=== PATIENT | female | born 1990 | race Caucasian/White ===

== ENCOUNTER → 2016-09-09 | Outpatient (CLI) | payer OTHER ==
[~2016-09-09] MED LIST: PRED10TA PO
[2016-09-09 23:12] LABS: CHOLESTEROL/HDL RATIO 2.7
== END | disposition home or self-care (01) ==
LOC: C.LAB 22:36
PROVIDERS: ATTEND Emergency Medicine
DX: Z00.00 Encounter for general adult medical examination without abnormal findings (principal)

== ENCOUNTER 2021-09-08 11:52 | Inpatient (IN) ==
[2021-09-08] MEDS ORDERED: OXYTOCIN 30 UNITS/500 ML BAG IV PRN ×3 (12:33→22:39)
[2021-09-08] MEDS: LACTATED RINGER'S 1,000 ML IV PRN ×2 (12:45→17:34)
--- NOTE | 2021-09-08 12:46 | History & Physical Report ---
Date of Service September 08, 2021 Assessment & Plan (1) Supervision of normal first : Plan: IUP at 39-3/7 weeks with grossly ruptured membranes and early labor. The actual time of rupture is unclear, and may have occurred sometime yesterday. She is currently afebrile but contractions are still sporadic. We will augment her labor with Pitocin at this time. Epidural when requested We will notify the hospitalist cartridge feeder about the positive panorama screen for Klinefelter's. Anticipate vaginal . History of Present Illness Primary Care Provider: Damien Sales MD Patient is a 30-year-old 1 P0 female EDC of 09/13/2021 who presents at 39-3/7 weeks with leaking amniotic fluid. She had intermittent leaking fluid and vaginal discharge yesterday but it was not till this morning that ruptured membranes was obvious. She had soaked 1 pad through the night for clear fluid and a pad she had put on at 8 AM was soaked by 10 AM this morning. She was evaluated in the office and noted to have pooling nitrazine and ferning positive. She has had irregular contractions since yesterday which have become more consistent but still are very irregular. has been complicated by chlamydia on new OB RNA testing. Follow-up testing has been negative. She also had a positive panorama test for Klinefelter syndrome (XXY). She had a con sultation with genetics at [facility] and elected not to have an amniocentesis for definitive diagnosis but will do cord blood testing after delivery. GBS is negative. Allergies Allergy/AdvReac Type Severity Reaction Status Date / Time No Known Allergies Allergy Verified 09/08/21 11:10 Home Medications Medication Instructions Recorded Confirmed Type prenat.vits,gt,leg-poqz-abjns 1 tab PO DAILY 01/30/21 09/08/21 History sertraline 50 mg tablet (Zoloft) 50 mg PO DAILY 07/03/21 09/08/21 History ondansetron HCl 4 mg tablet 4 mg PO Q6H PRN nausea and 08/23/21 09/08/21 Rx vomiting #30 tabs Patient History Medical History (Updated 08/12/21 @ 14:47 by Antonia Owens DO) Acid reflux Anxiety Varicella vaccination Surgical History S/P wisdom tooth extraction Family History Denies family history of Ovarian cancer Breast cancer Colorectal cancer Social History (Updated 08/12/21 @ 13:17 by Mirtha Cohen RN) Smoking Status: Former smoker Hx Alcohol Use: No Hx Substance Use: No Preferred Language: Serbian Beliefs That Will Affect Care: None marital status: marital status details: Caleb Canada (33) [phone] Current Living Situation: Spouse Current Living Situation Comment: lives with spouse, no pets current occupational status: employed 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 Feels Safe at Home: Yes Review of Systems All systems reviewed & are unremarkable except as noted in HPI & below Physical Exam Constitutional: WD/WN, vitals as above Respiratory: normal respiratory effort, lungs clear to auscultation Cardiovascular: RRR, no murmur, no edema Psychiatric: A+Ox3, euthymic affect Genitourinary: OB Exam Abdomen: + vertex, + estimated weight (7-8 pounds) and + irregular contractions Manual OB Exam: + cervical dilation 2 cm (2-3 cm), + cervical effacement 70%, + station -2 and + amniotic fluid (grossly ruptured) clear OB Exam Monitor Tracing: + external FHT monitor used, + external uterine monitor used, + category I and + normal FHT variability Results & Data ([facility]) Vital Signs (Past 12 Hours) Vital Signs Temp Pulse Resp BP 09/08/21 12:25 69 09/08/21 12:25 122/73 09/08/21 11:59 20 09/08/21 11:59 98.1 F 20 09/08/21 11:58 86 121/74 Code Status & VTE Plan VTE Prophylaxis Plan VTE Prophylaxis will be ordered: No Coding Level of Care Code None Diagnoses Supervision of normal first Z34.00
[2021-09-08 13:16] LABS: Hematocrit (blood only) 35.7 % (34.1-44.9); Hemoglobin 11.9 g/dl (12.0-16.0); Mean Corpuscular Hemoglobin 28.2 pg (25.0-34.0); Mean Corpuscular Hgb Conc 33.3 g/dL (32.0-36.0); Mean Corpuscular Volume 84.6 fL (80.0-100.0); Mean Platelet Volume 9.5 fL (9.4-12.3); Platelet Count 397 K/uL (130-400); RDW Coefficient of Variation 12.8 % (11.5-14.5); RDW Standard Deviation 38.5 fL (36.4-46.3); Red Blood Count 4.22 M/uL (3.93-5.22); White Blood Count 11.46 K/ul (4.8-10.8)
[2021-09-08] MEDS ORDERED: ePHEDrine sulfate 50 MG/ML AMP ONE (16:00)
[2021-09-08] MEDS ORDERED: fentaNYL citrate 100 MCG/2 ML VIAL ONE (16:00)
[2021-09-08] MEDS ORDERED: SODIUM CHLORIDE 0.9% INJ 10 ML VIAL ONE ×2 (16:00→19:07)
[2021-09-08] MEDS ORDERED: fentaNYL 2MCG/ML ROPIVACAINE 1.25MG/ML 100 ML BAG EPI ONE (16:01)
[2021-09-08] MEDS ORDERED: LIDOCAINE 2%/EPINEPHRINE 1:200,000 20 ML SDV ONE (16:01)
[2021-09-08] MEDS ORDERED: BUPIVACAINE 0.25% 30 ML VIAL ONE ×2 (16:01→19:07)
[2021-09-08] MEDS: PANTOprazole 40 MG TAB PO SCH (16:18)
[2021-09-08] MEDS ORDERED: ePHEDrine sulfate 50 MG/ML AMP IV PRN (16:33)
[2021-09-08] MEDS ORDERED: diphenhydrAMINE 50 MG/ML VIAL IV PRN (16:33)
[2021-09-08] MEDS ORDERED: NALOXONE HCL 1 MG in SODIUM CHLORIDE 0.9% 1000ML 1,000 ML IV PRN (16:33)
[2021-09-08] MEDS ORDERED: NALBUPHINE HCL INJ 10 MG/ML AMP IV PRN (16:33)
[2021-09-08] MEDS ORDERED: NALOXONE HCL 0.4 MG/1 ML VIAL/CARP IV PRN (16:33)
[2021-09-08] MEDS ORDERED: ONDANSETRON INJ 2 MG/ML 2 ML VIAL IV PRN (16:33)
[2021-09-08] MEDS ORDERED: fentaNYL 2MCG/ML ROPIVACAINE 1.25MG/ML 100 ML BAG EPI PRN (16:33)
--- NOTE | 2021-09-08 16:36 | Anesthesiology Consultation ---
Date of Service September 08, 2021 Assessment & Plan Chart Review Chart Review: Patient NOT seen in Pre Admission Testing and Acceptable Risk for Labor Epidural Consults Requested none ASA ASA2 Proposed Anesthesia Anesthesia Type: Labor Epidural and CSE Risk / Benefits Reviewed With: PT / POA / Parent / Guardian, Accepts Plan and Informed Consent Obtained History Height/Weight Height: 5 ft 8 in Weight: 89.358 kg Allergies Allergy/AdvReac Type Severity Reaction Status Date / Time No Known Allergies Allergy Verified 09/08/21 11:10 Medications Home Medications Medication Instructions Recorded Confirmed Last Taken prenat.vits,gt,vqd-ogzo-mvdsq 1 tab PO DAILY 01/30/21 09/08/21 09/07/21 sertraline 50 mg tablet (Zoloft) 50 mg PO DAILY 07/03/21 09/08/21 09/07/21 omeprazole 40 mg capsule,delayed 40 mg PO DAILY 09/08/21 09/08/21 09/07/21 release Active Medications Generic Name Dose Route Start Last Admin Trade Name Freq PRN Reason Stop Dose Admin Oxytocin 30 units in 500 mls @ 3 mls/hr 09/08/21 12:33 09/08/21 15:00 Pitocin IV 09/10/21 12:32 0.18 units/hr .Q24H PRN 3 mls/hr Labor Induction/Augmentation Titration Protocol 0.18 UNITS/HR Lactated Ringer's 1,000 mls @ 125 mls/hr 09/08/21 12:33 09/08/21 12:45 Lr IV 09/10/21 12:32 125 mls/hr .Q8H PRN Administration L&D Protocol Protocol Pantoprazole Sodium 40 mg 09/08/21 15:00 09/08/21 16:18 Pantoprazole 40 Mg Tab PO 10/08/21 14:59 40 mg QAM REBEKAH Administration NPO Date Last Intake of Fluids: 09/08/21 Time Last Intake of Fluids: 15:00 Date Last Intake of Solids: 09/07/21 Time Last Intake of Solids: 19:00 Past Medical History Medical History Acid reflux Anxiety Exercise / Class Metabolic Activity II 4-5 Yardwork/Stairs/Walk up hill Past Family History Family History Denies family history of Ovarian cancer Breast cancer Colorectal cancer Past Surgical History Surgical History S/P wisdom tooth extraction Past Anesthesia History No Hx of Anesthesia Complications and No Family Hx of Anesthesia Complications History of PONV No Hx of PONV and No Hx of Motion Sickness Social History Smoking Status: Former smoker Hx Alcohol Use: No Hx Substance Use: No Review of Systems no chest pain or sob Physical Exam Vital Signs Last Vital Signs Temp 36.4 C L 09/08/21 13:33 Pulse 75 09/08/21 16:28 Resp 20 09/08/21 13:33 BP 128/91 09/08/21 16:19 Pulse Ox 100 09/08/21 16:28 ENMT Mouth: no TMJ abnormality Thyromental Distance: > or= 3.5 Finger Breadths Mallampati Class: II Neck normal visual inspection Respiratory normal respiratory effort Auscultation: lungs clear to auscultation bilaterally Cardiovascular Rate/Rhythm: regular rate and regular rhythm Musculoskeletal Spine: normal cervical ROM Neurologic moves all extremities Psychiatric Orientation: alert and oriented x 3 Testing Laboratory Results 09/08/21 12:47
[2021-09-08] MEDS ORDERED: NURSING L&D Epidural Breakthrough Pain Update ONE (19:44)
[2021-09-08] MEDS: SERTRALINE HCL 50 MG TABLET PO SCH (22:35)
[2021-09-08] MEDS ORDERED: BENZOCAINE 20% AER SPR 82.5 GM CAN EXT PRN (22:39)
[2021-09-08] MEDS ORDERED: DIPHTHERIA/TETANUS/PERTUSSIS 0.5 ML SYR/VIAL IM ONE (22:39)
[2021-09-08] MEDS ORDERED: HYDROCORTISONE ACETATE 25 MG SUPP PR PRN (22:39)
[2021-09-08] MEDS ORDERED: oxyCODONE/ACETAMINOPHEN 5mg/325mg TAB PO PRN (22:39)
--- NOTE | 2021-09-08 22:49 | Delivery Summary ---
Vaginal Delivery Summary Date of Service September 08, 2021 Vaginal Delivery Summary and 1st Degree LAC Patient is a 30-year-old 1 P0 female EDC of 09/13/2021 who presented with a history of leaking amniotic fluid approximately 2200 hrs. on 09/07/2021. She was having irregular contractions upon admission on the morning of 09/08/2021. Pitocin augmentation of her labor was begun she received epidural analgesia which was effective. After she was comfortable, she was reexamined and there was a forewaters present which was ruptured for moderate meconium stained fluid. She then continued to progress to complete dilation. She had the urge to push and did so effectively over intact perineum. After the head was delivered, a loose triple nuchal cord was reduced prior to delivering the rest of the infant. The rest of the male infant delivered easily and was placed on the mother's abdomen for further attention and drying. He was vigorous and moving all 4 limbs. Of note, there was also a true knot in the cord. After gentle traction on the umbilical cord did not delivered the placenta, it was noted to be trapped in the cervix. The placenta was then manually removed easily after dislodging it from the cervix. The placenta was intact with a three-vessel cord and an a ccessory lobe. Post delivery bleeding was controlled with dilute Pitocin. A first-degree vaginal laceration was repaired with 3-0 chromic in the usual fashion. Estimated blood loss was 200 cc. Mother and were doing well after delivery. Also note that cord blood was sent for karyotyping as the panorama was high risk for XXY. [facility] Vaginal Delivery Charge Delivery Type Details: and 1st Degree LAC
--- NOTE | 2021-09-08 23:43 | Anesthesia Procedure Note ---
Date of Service September 08, 2021 Anesthesia Post Epidural Note Vital Signs Vital Signs: Temp Pulse Resp BP Pulse Ox 36.7 C 92 H 18 134/80 98 09/08/21 21:00 09/08/21 23:35 09/08/21 23:20 09/08/21 23:35 09/08/21 22:23 Pain Intensity Lower Abdomen: Pain Intensity: 0 Notes Mental Status: alert / awake / arousable and participated in evaluation Nausea / Vomiting: adequately controlled Pain: adequately controlled Airway Patency, RR, SpO2: stable & adequate BP & HR: stable & adequate Hydration State: stable & adequate Neuraxial Anesthesia: was administered and sensory block is resolving Anesthetic Complications: no major complications apparent and Pt Satisfied with anesthetic care Epidural: Removed without complications and With tip intact
[2021-09-09] MEDS: IBUPROFEN 600 MG TAB PO PRN ×5 (00:18→19:48)
--- NOTE | 2021-09-09 05:17 | Obstetrical Progress Note ---
Date of Service <Minna Guerra - Last Filed: 09/09/21 06:41> September 09, 2021 Assessment & Plan <Minna Guerra DO - Last Filed: 09/09/21 06:41> (1) Status post vaginal delivery: Plan continue OOB, ambulation, diet as tolerated <Karina Marley MD, FACOG - Last Filed: 09/09/21 07:37> (1) Status post vaginal delivery: Subjective <Minna Guerra - Last Filed: 09/09/21 06:41> Shoshana is a 30y/o female who is now PPD # 1 following vaginal delivery at 39 3/7. Reports feeling well overall this morning. Moderate abdominal cramping well managed on analgesics. Has not voiding on her own yet. Tolerating meals overnight and able to ambulate some. Not passing gas and no bowel movements. Some persistent heavy lochia with some improvement this morning. Breast/Bottle feeding. Review of Systems Denies fever, chills, sweats Denies shortness of breath, difficulty breathing, chest pain, palpitations, chest pressure. Denies breast pain. Denies dysuria. Denies headache or changes in vision. Physical Exam <Minna Guerra - Last Filed: 09/09/21 06:41> General: Alert, oriented. No acute distress. Cardiac: Regular rate and rhythm, no murmurs/rubs/gallops. Respiratory: Clear to auscultation bilaterally a/p, no wheezes/rales/rhonchi. No increased work of breathing. Symmetrical chest rise. No respiratory distress. Abdomen: Soft, nontender, nondistended. Bowel sounds present. Uterus: Uterine fundus firm, palpable 1 cm below umbilicus. Lower Extremities: No lower extremity edema or swelling. No deep calf pain. Kvng's negative bilaterally. Results & Data ([facility]) <Minna Guerra DO - Last Filed: 09/09/21 06:41> Vital Signs (Past 12 Hours) Temp Pulse Resp BP Pulse Ox 36.9 C 68 20 122/69 98 09/09/21 03:31 09/09/21 03:31 09/09/21 03:31 09/09/21 03:31 09/08/21 22:23 <Karina Marley MD, FACOG - Last Filed: 09/09/21 07:37> Co-Signing Physician Notes Resident Physician Supervision Note: I interviewed and examined the patient. Discussed with Dr. Guerra and agree with findings and plan as documented in the note. Any exceptions or clarifications are listed here: [None] Documented By: Karina Marley MD, FACOG Resident Activity Tracking <Minna Guerra DO - Last Filed: 09/09/21 06:41> Resident Involvement: Resident Care Provided Care Provided: OB Delivery (Post )
[2021-09-09 07:01] LABS: Hemoglobin 11.6 g/dl (12.0-16.0); Mean Corpuscular Hemoglobin 28.3 pg (25.0-34.0); Mean Corpuscular Hgb Conc 32.2 g/dL (32.0-36.0); Mean Corpuscular Volume 87.8 fL (80.0-100.0); Mean Platelet Volume 9.6 fL (9.4-12.3); Platelet Count 354 K/uL (130-400); RDW Coefficient of Variation 12.7 % (11.5-14.5); RDW Standard Deviation 40.1 fL (36.4-46.3); White Blood Count 10.94 K/ul (4.8-10.8)
[2021-09-09] MEDS ORDERED: SERTRALINE HCL 50 MG TABLET PO SCH (09:00)
[2021-09-09] MEDS: PRENATAL VITAMIN 1 TAB PO SCH (09:15)
[2021-09-09] MEDS: DOCUSATE SODIUM 100 MG CAP PO SCH ×2 (09:15→19:49)
[2021-09-09] MEDS: PANTOprazole 40 MG TAB PO SCH (09:16)
[2021-09-09] MEDS: SERTRALINE HCL 50 MG TABLET PO SCH (09:16)
[2021-09-09] MEDS: ACETAMINOPHEN 325 MG TAB PO PRN (18:10)
[2021-09-09] MEDS ORDERED: bisacodyL 5 MG TABEC PO SCH (20:00)
[2021-09-10] MEDS ORDERED: bisacodyL 10 MG SUPP PR PRN
[2021-09-10] MEDS: ACETAMINOPHEN 325 MG TAB PO PRN (00:56)
[2021-09-10] MEDS: IBUPROFEN 600 MG TAB PO PRN ×2 (00:56→08:08)
[2021-09-10 07:56] LABS: Hematocrit (blood only) 34.1 % (34.1-44.9); Hemoglobin 11.1 g/dl (12.0-16.0)
[2021-09-10] MEDS: SERTRALINE HCL 50 MG TABLET PO SCH (08:08)
[2021-09-10] MEDS: PRENATAL VITAMIN 1 TAB PO SCH (08:08)
[2021-09-10] MEDS: DOCUSATE SODIUM 100 MG CAP PO SCH (08:08)
[2021-09-10] MEDS: PANTOprazole 40 MG TAB PO SCH (08:09)
--- NOTE | 2021-09-10 09:37 | Obstetrical Progress Note ---
Date of Service September 10, 2021 Assessment & Plan (1) Status post vaginal delivery: Plan Plan d/c home. Continue zoloft. Plan a 2 week visit to evaluate mood. Encouraged patient and to call with mood concerns. Reassured that every parent feels like she is feeling when taking home a for the first time. Has resources and family help. Instructions given. Day #:: 2 Subjective Ambulation: ambulating normally Voiding: no voiding problems Diet Tolerance:: regular diet Lochia:: Small Feeding Type:: breast feeding Nursing was concerned about her affect this am. Spoke to the patient in detail. She notes her mood is ok. She is just feeling a bit overwhelmed by everything. She notes that the was hard and she vomitted every day. Now has this and has normal fears about taking care of him and the additional concern that the baby may have Kleinfelters. She is appropriately tearful with me this am. Physical Exam Constitutional WD/WN, vitals as above Respiratory normal respiratory effort, lungs clear to auscultation Cardiovascular RRR, no murmur, no edema Extremities: no calf tenderness and no edema Gastrointestinal (Abdomen) soft, nt, nd, ff/nt at u Psychiatric A+Ox3, euthymic affect Results & Data ([facility]) Vital Signs (Past 12 Hours) Vital Signs Temp Pulse Resp BP Pulse Ox O2 Del Method 09/09/21 22:48 36.6 C 57 L 16 116/71 96 Room Air
== END 2021-09-10 12:30 | disposition home or self-care (01) | DRG 807 ==
LOC: OPB 11:52 → 4S1 11:55 → 4E2 09-09 00:57

== ENCOUNTER 2025-01-04 07:27 | Inpatient (IN) ==
--- NOTE | 2025-01-04 07:39 | History & Physical Report ---
Date of Service January 04, 2025 Assessment & Plan (1) 40 weeks gestation of : Plan Pitocin Arom when indicated Monitor tracing, category 1 Admission and Anticipated Discharge Date Admission Date: January 04, 2025 History of Present Illness Chief Complaint: IOL Primary Care Provider: Ramona Luna MD 34 yo at 40w1d admitted for IOL for postdates. Dale bulb placed yesterday, fell out spontaneously this AM. Denies SALAZAR, CP, SOB, N/V/D, LE pain. GBS pos, RH+ Contractions: none FM: present Fluid loss: none Bloody show: none Allergies Allergy/AdvReac Type Severity Reaction Status Date / Time No Known Allergies Allergy Verified 01/01/25 15:20 Home Medications Medication Instructions Recorded Confirmed Type omeprazole 40 mg capsule,delayed 40 mg PO QAM 09/08/21 01/04/25 History release sertraline 100 mg tablet (Zoloft) 100 mg PO QAM 08/21/23 01/04/25 History prenat.vits,gt,gcp-gybf-wepjz tab PO 06/04/24 01/01/25 History buspirone 5 mg tablet 5 mg PO BID 90 days #180 tabs 11/11/24 01/04/25 Rx ondansetron HCl 4 mg tablet 4 mg PO Q6H PRN nausea and 12/03/24 01/04/25 Rx vomiting #30 tabs Patient History Medical History Anxiety and depression Missed ab Anembryonic Elevated BP without diagnosis of hypertension Hx Surgical History S/P dilation and curettage Hx of LASIK (2014) S/P wisdom tooth extraction Family History Son Sageinefelter's syndrome Denies family history of Ovarian cancer Breast cancer Colorectal cancer Social History (Updated 01/04/25 @ 07:53 by Mirtha Cohen, ANAIS) Smoking Status: Former smoker Tobacco Type: Cigarettes Age Started Using Tobacco: 21; Age Quit Using Tobacco: 32; packs per day: 0.5; Cigarettes Per Day: 1/2 ppd (advised); Second Hand Exposure: No; Do You Dip or Chew Tobacco: No; Hx Alcohol Use: No Hx Substance Use: No Preferred Language: Taiwanese Communication Ability: Effective Visual Impairment: No Limitations Tax Revenue Officer Required: No Beliefs That Will Affect Care: None marital status: marital status details: Caleb Canada (35) [phone] Current Living Situation: Spouse Current Living Situation Comment: lives with spouse and child, no pets current occupational status: employed 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 Other Information That Helps Us Care for You: No Feels Safe at Home: Yes Diet: regular Dental Care, Regularly: Yes Physical Activity Frequency: Daily Seatbelt Use: always Sunscreen Use: Yes Assistive Devices: None OB History : 3 Full term: 1 Premature: 0 Total Number of Induced Abortions: 0 Total Number of Spontaneous Abortions: 1 Ectopics: 0 Multiple births: 0 Number of 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 History Last menstrual period: No Menstrual reliability: unknown Flow: normal Menstrual regularity: irregular Monthly: No Age at menarche: 14 On control pills at conception: No Date of positive home test: 04/29/24 Menstrual history comments: States would get period every 2-3 months Details: last pap 02/02/21 with [facility] (Rec f/u in 3 years) Review of Systems All systems reviewed & are unremarkable except as noted in HPI & below Physical Exam Constitutional: WD/WN, vitals as above Respiratory: normal respiratory effort, lungs clear to auscultation Cardiovascular: RRR, no murmur, no edema Gastrointestinal (Abdomen): normal bowel sounds, soft, nontender, no hepatosplenomegaly +gravid Skin: no rashes, warm and dry Psychiatric: A+Ox3, euthymic affect Results & Data Laboratory Results OB Labs: Blood Type O Positive 06/11/24 Antibody Screen NEGATIVE 06/11/24 Hgb 10.3 g/dl (12.0-16.0) L 12/09/24 Hct 32.7 % (37.0-47.0) L 12/09/24 MCV 82.4 fL (80.0-100.0) 12/09/24 Plt Count 542 K/uL (130-400) H 12/09/24 Rubella IgG Antibody Immune (Immune) 06/11/24 RPR Nonreactive (Nonreactive) 02/02/21 Treponema pallidum Ab Negative (Negative) 10/19/24 Hep Bs Antigen Negative (Negative) 06/11/24 Hepatitis C Antibody Negative (Negative) 06/11/24 HIV 1&2 Ab/P24 Ag 4thGn Negative (Negative) 06/11/24 Glucose 1 Hr 50 gm 140 mg/dl (70-130) H 07/22/24 Maternal Serum AFP 44.5 ng/mL 03/30/21 OB Optional Labs: Chlamydia trachomatis RNA Not Detected (NotDetected) 06/11/24 Neisseria gonorrhoeae RNA Not Detected (NotDetected) 06/11/24 Alpha Fetoprotein Triple Screen SEE NOTE 03/30/21 Monitoring External Monitor HR: 145 Variability: moderate Accelerations: present Decelerations: absent Contractions: present intermittently Category 1 tracing Supervising Physician Co-Signing Physician Notes Patient seen and evaluated agree with the above findings and plan. Will start with oxytocin per regular protocol. Category 1 tracing noted. Resident Activity Tracking Resident Involvement: Resident Care Provided Care Provided: OB Delivery
[2025-01-04] MEDS ORDERED: OXYTOCIN 30 UNITS/NSS 30 UNITS/500 ML BAG IV PRN ×2 (08:04→18:30)
[2025-01-04] MEDS ORDERED: LIDOCAINE 1% LOCAL 20 ML VIAL INFIL PRN (08:04)
[2025-01-04] MEDS: PENICILLIN GK 6 MU in DEXTROSE 5% 250 ML IV STA (08:55)
[2025-01-04] MEDS: LACTATED RINGER'S 1,000 ML IV PRN (08:55)
[2025-01-04] MEDS: OXYTOCIN 30 UNITS/NSS 30 UNITS/500 ML BAG IV PRN (09:06)
[2025-01-04 09:15] LABS: Hematocrit (blood only) 33.1 % (37.0-47.0); Hemoglobin 10.5 g/dl (12.0-16.0); Mean Corpuscular Hemoglobin 25.3 pg (25.0-34.0); Mean Corpuscular Volume 79.8 fL (80.0-100.0); Platelet Count 472 K/uL (130-400); RDW Standard Deviation 43.0 fL (36.4-46.3); Red Blood Count 4.15 M/uL (4.20-5.40); White Blood Count 11.55 K/ul (4.8-10.8)
[2025-01-04] MEDS ORDERED: NALBUPHINE HCL INJ 10 MG/ML AMP IV PRN (12:04)
[2025-01-04] MEDS ORDERED: SODIUM CHLORIDE 0.9% PF INJ 10 ML VIAL EPI PRN (12:04)
[2025-01-04] MEDS ORDERED: ROPIVACAINE 0.5% PF 5 MG/ML 20 ML VIAL EPI PRN (12:04)
[2025-01-04] MEDS ORDERED: NALOXONE HCL 1 MG in SODIUM CHLORIDE 0.9% 1,000 ML IV PRN (12:04)
[2025-01-04] MEDS ORDERED: ONDANSETRON INJ 2 MG/ML 2 ML VIAL IV PRN (12:04)
[2025-01-04] MEDS ORDERED: diphenhydrAMINE 50 MG/ML VIAL IV PRN (12:04)
[2025-01-04] MEDS ORDERED: LIDOCAINE 2% MPF LOCAL 5 ML VIAL EPI PRN (12:04)
[2025-01-04] MEDS ORDERED: BUPIVACAINE 0.25% PF 30 ML VIAL EPI PRN (12:04)
[2025-01-04] MEDS ORDERED: NALOXONE HCL 0.4 MG/1 ML VIAL/CARP IV PRN (12:04)
--- NOTE | 2025-01-04 12:07 | Anesthesiology Consultation ---
Date of Service January 04, 2025 Assessment & Plan (1) Encounter for pre-operative examination: Chart Review Chart Review: Patient NOT seen in Pre Admission Testing and Acceptable Risk for Labor Epidural Consults Requested none History Height/Weight Height: 5 ft 9 in Weight: 98.883 kg Allergies Allergy/AdvReac Type Severity Reaction Status Date / Time No Known Allergies Allergy Verified 01/01/25 15:20 Medications Home Medications Medication Instructions Recorded Confirmed Last Taken omeprazole 40 mg capsule,delayed 40 mg PO QAM 09/08/21 01/04/25 01/04/25 release sertraline 100 mg tablet (Zoloft) 100 mg PO QAM 08/21/23 01/04/25 01/04/25 prenat.vits,gt,hsc-flwj-tkjgq tab PO 06/04/24 01/01/25 01/03/25 buspirone 5 mg tablet 5 mg PO BID 90 days #180 tabs 11/11/24 01/04/25 01/04/25 ondansetron HCl 4 mg tablet 4 mg PO Q6H PRN nausea and 12/03/24 01/04/25 Unknown vomiting #30 tabs Active Medications Generic Name Dose Route Start Last Admin Trade Name Freq PRN Reason Stop Dose Admin Lactated Ringer's 1,000 mls @ 125 mls/hr 01/04/25 08:04 01/04/25 12:10 Lr IV 01/06/25 08:03 999 mls/hr .Q8H PRN Administration L&D Protocol Protocol Oxytocin 30 units in 500 mls @ 6 mls/hr 01/04/25 08:45 01/04/25 10:50 Pitocin 30 Units/Nss IV 01/06/25 08:44 0.36 units/hr .Q24H PRN 6 mls/hr Labor Induction/Augmentation Titration Protocol 0.36 UNITS/HR Past Medical History Medical History Anxiety and depression Missed ab Anembryonic Elevated BP without diagnosis of hypertension Hx Exercise / Class Metabolic Activity II 4-5 Yardwork/Stairs/Walk up hill Past Family History Family History Son Sageinefelter's syndrome Denies family history of Ovarian cancer Breast cancer Colorectal cancer Past Surgical History Surgical History S/P dilation and curettage Hx of LASIK (2013) S/P wisdom tooth extraction Past Anesthesia History No Hx of Anesthesia Complications and No Family Hx of Anesthesia Complications Social History Smoking Status: Former smoker Smoking cigarettes per day: 1/2 ppd (advised) Do You Dip or Chew Tobacco: No Hx Alcohol Use: No alcohol intake frequency: a few times a month Hx Substance Use: No substance use type: does not use Physical Exam Vital Signs Last Vital Signs Temp 36.8 C 01/04/25 10:51 Pulse 68 01/04/25 12:26 Resp 20 01/04/25 12:13 BP 113/55 L 01/04/25 12:26 Pulse Ox 100 01/04/25 12:24 Testing Laboratory Results 01/04/25 08:45
[2025-01-04] MEDS: SODIUM CHLORIDE 0.9% PF INJ 10 ML VIAL ONE (12:28)
[2025-01-04] MEDS: BUPIVACAINE 0.25% PF 30 ML VIAL ONE (12:28)
[2025-01-04] MEDS: LIDOCAINE 2%/EPINEPHRINE 1:200,000 20 ML PF ONE (12:28)
[2025-01-04] MEDS: fentANYL 2 MCG/ML BUPIVacaine 0.125%-NSS 100ML BAG ONE (12:29)
[2025-01-04] MEDS: PENICILLIN GK 3 MU in DEXTROSE 5% 100 ML IV PRN (12:35)
[2025-01-04] MEDS: LIDOCAINE 2%/EPINEPHRINE 1:200,000 20 ML PF EPI STA (12:51)
[2025-01-04] MEDS: BUPIVACAINE 0.25% PF 30 ML VIAL EPI STA (13:30)
[2025-01-04] MEDS: SODIUM CHLORIDE 0.9% PF INJ 10 ML VIAL EPI STA (13:30)
[2025-01-04] MEDS ORDERED: NURSING L&D Epidural Breakthrough Pain Update ONE (16:15)
[2025-01-04] MEDS: fentANYL 2 MCG/ML BUPIVacaine 0.125%-NSS 100ML BAG EPI PRN (17:36)
[2025-01-04] MEDS ORDERED: HYDROCORTISONE ACETATE 25 MG SUPP PR PRN (18:30)
[2025-01-04] MEDS ORDERED: ACETAMINOPHEN 325 MG TAB PO PRN (18:30)
--- NOTE | 2025-01-04 18:33 | Delivery Summary ---
Vaginal Delivery Summary Date of Service January 04, 2025 Vaginal Delivery Summary and 1st Degree LAC Patient progressed to 10 cm dilated, 100% effaced and +2 station and pushed over intact perineum with epidural delivery of viable with weight and Apgars pending. Head of the delivered without difficulty quickly followed by shoulders and body. was noted be vigorous soon after delivery and a 1 minute delayed cord clamping was initiated. Cord was then double clamped and cut and remained on maternal abdomen. Cord blood obtained and attention turned to delivery of the placenta which delivered intact with three-vessel cord with gentle cord traction. Inspection of perineum vagina and cervix was noted to be a first-degree perineal laceration which repaired with 3-0 Vicryl with a single [id number] stitch. Needle sponge and instrument count correct at the completion of the case. Both mother and stable in the immediate postdelivery timeframe. No complications noted and blood loss per QBL in chart. [facility] Vaginal Delivery Charge Delivery Type Details: and 1st Degree LAC
[2025-01-04] MEDS: DIPHTHER/TETAN/PERTUS Vaccine (Tdap, Adol/Adult) 0.5mL IM ONE (18:47)
--- NOTE | 2025-01-04 19:22 | Anesthesia Procedure Note ---
Date of Service January 04, 2025 Anesthesia Post Epidural Note Vital Signs Vital Signs: Temp Pulse Resp BP Pulse Ox 36.9 C 90 18 125/82 100 01/04/25 16:53 01/04/25 19:14 01/04/25 19:15 01/04/25 19:14 01/04/25 18:14 Pain Intensity Bilateral Abdomen: Pain Intensity: 0 Notes Mental Status: alert / awake / arousable and participated in evaluation Nausea / Vomiting: adequately controlled Pain: adequately controlled Airway Patency, RR, SpO2: stable & adequate BP & HR: stable & adequate Hydration State: stable & adequate Neuraxial Anesthesia: was administered and sensory block is resolving Anesthetic Complications: no major complications apparent Epidural: Removed without complications and With tip intact
[2025-01-04] MEDS: BENZOCAINE 20% SPRY 85 APPLN/85 GM CAN EXT PRN (19:41)
[2025-01-04] MEDS: IBUPROFEN 600 MG TAB PO PRN (19:41)
[2025-01-04] MEDS: ACETAMINOPHEN 325 MG TAB PO PRN (19:41)
[2025-01-04] MEDS: DOCUSATE SODIUM 100 MG CAP PO SCH (23:32)
--- NOTE | 2025-01-05 06:54 | Obstetrical Progress Note ---
Date of Service January 05, 2025 Assessment & Plan (1) care following vaginal delivery: Plan 34 yo post- day 1 s/p . Feels well today. Vital signs stable Continue post- care Encourage ambulation and Pain controlled with ibuprofen Hgb stable Patient would like to be discharged today evening Discharge today, follow up with Dr. Cisneros in 6 weeks. Admission and Anticipated Discharge Date Admission Date: January 04, 2025 Supervising Physician Co-Signing Physician Notes Patient seen with resident and agree with the above findings and plan. Patient doing well and requesting discharge today. Subjective 34 yo post- day 1 s/p . Ambulation: ambulating normally Voiding: no voiding problems Passing Gas:: Yes Passing Stool:: no Diet Tolerance:: regular diet Lochia:: Small Feeding Type:: bottle feeding Current Pain Level: 7/10, improves with medication Resting comfortably this AM in NAD. Denies SALAZAR, CP, SOB, N/V/D, LE pain/swelling. Review of Systems Review of Systems: All systems reviewed & are unremarkable except as noted in HPI & below Physical Exam Physical Exam: General: patient resting comfortably, NAD, non-toxic in appearance, AA&O x 4, answers questions appropriately. Skin: warm, dry, intact HEENT: NC/AT, anicteric sclera, conjunctiva without injection, moist mucus membranes. Heart: +S1/S2, regular, no m/r/g Lungs: equal air entry bilaterally, no rales/rhonchi/wheezes Abd: +BS, soft, NT/ND, uterine fundus firm at umbilicus Ext: warm, no clubbing/cyanosis or edema, Kvng's neg. Neuro: nonfocal, patient AA&O x 4, speech intact, no facial droop, moving all extremities on command. Results & Data Vital Signs (Past 12 Hours) Vital Signs Temp Pulse Pulse Resp BP BP Pulse Ox 01/05/25 04:54 36.5 C 53 L 18 134/77 97 01/04/25 22:55 36.5 C 66 H 121/67 95 01/04/25 20:39 82 139/66 01/04/25 20:30 36.7 C 20 01/04/25 20:29 74 134/107 H 01/04/25 20:14 76 125/76 01/04/25 20:00 20 01/04/25 19:59 66 132/68 01/04/25 19:45 75 143/74 H 01/04/25 19:30 20 01/04/25 19:30 75 127/82 01/04/25 19:15 18 01/04/25 19:14 90 125/82 01/04/25 19:00 18 01/04/25 18:59 76 128/75 O2 Del Method 01/05/25 04:54 Room Air 01/04/25 22:55 Room Air 01/04/25 20:39 01/04/25 20:30 01/04/25 20:29 01/04/25 20:14 01/04/25 20:00 01/04/25 19:59 01/04/25 19:45 01/04/25 19:30 01/04/25 19:30 01/04/25 19:15 01/04/25 19:14 01/04/25 19:00 01/04/25 18:59 Laboratory Results OB Labs: Blood Type O Positive 06/11/24 Antibody Screen NEGATIVE 06/11/24 Hgb 10.3 g/dl (12.0-16.0) L 12/09/24 Hct 32.7 % (37.0-47.0) L 12/09/24 MCV 82.4 fL (80.0-100.0) 12/09/24 Plt Count 542 K/uL (130-400) H 12/09/24 Rubella IgG Antibody Immune (Immune) 06/11/24 RPR Nonreactive (Nonreactive) 02/02/21 Treponema pallidum Ab Negative (Negative) 10/19/24 Hep Bs Antigen Negative (Negative) 06/11/24 Hepatitis C Antibody Negative (Negative) 06/11/24 HIV 1&2 Ab/P24 Ag 4thGn Negative (Negative) 06/11/24 Glucose 1 Hr 50 gm 140 mg/dl (70-130) H 07/22/24 Maternal Serum AFP 44.5 ng/mL 03/30/21 OB Optional Labs: Chlamydia trachomatis RNA Not Detected (NotDetected) 06/11/24 Neisseria gonorrhoeae RNA Not Detected (NotDetected) 06/11/24 Alpha Fetoprotein Triple Screen SEE NOTE 02/03/22 Resident Activity Tracking Resident Involvement: Resident Care Provided Care Provided: OB Delivery
[2025-01-05] MEDS: FERROUS SULFATE 325 MG TAB PO SCH (07:31)
[2025-01-05] MEDS: PRENATAL VITAMIN 1 TAB PO SCH (07:31)
[2025-01-05 16:01] VITALS: BP 132/82; PULSE 69; RESP 20; TEMP 98.1; O2SAT 95
== END 2025-01-05 19:20 | disposition home or self-care (01) | DRG 807 ==
LOC: 4S1 07:27 → 4E2 21:17